=== PATIENT | male | born 1990 | race Caucasian/White ===

== ENCOUNTER 2016-10-29 13:05 | Emergency (ER) | payer OTHER | END 2016-10-29 14:57 | disposition home or self-care (01) | LOC: ER1 13:05 | DX: S01.01XA Laceration without foreign body of scalp, initial encounter (principal); F17.200 Nicotine dependence, unspecified, uncomplicated; Z23 Encounter for immunization; W22.8XXA Striking against or struck by other objects, initial encounter | CPT/HCPCS: 70450; 90471; 90715; 99283 ==